=== PATIENT | male | born 1980 | race Hispanic/Latino ===

== ENCOUNTER 2020-07-10 20:30 | Emergency (ER) | payer OTHER ==
[2020-07-10] MEDS ORDERED: KETOROLAC TROMETHAMINE 60 MG/2 ML VIAL ONE (22:56)
[2020-07-10] MEDS ORDERED: CYCLOBENZAPRINE HCL 10 MG TABLET ONE (22:57)
== END 2020-07-11 00:14 | disposition home or self-care (01) ==
LOC: EDH 20:30
DX: S20.212A Contusion of left front wall of thorax, initial encounter (principal); I10 Essential (primary) hypertension; V49.59XA Passenger injured in collision with other motor vehicles in traffic accident, initial encounter; Y93.89 Activity, other specified; Y92.89 Other specified places as the place of occurrence of the external cause; Y99.8 Other external cause status
CPT/HCPCS: 71045; 96372; 99283; J1885